=== PATIENT | female | born 1970 | race Caucasian/White ===

== ENCOUNTER 2019-02-08 09:42 | Inpatient (IN) | payer BC ==
[~2019-02-08] VITALS: Ht 167.6 cm; Wt 68.4 kg
[2019-02-08] VITALS (24 sets, daily range): BP systolic 119–149; BP diastolic 68–93; PULSE 74–106; RESP 13–33; Ht 167.6 cm; Wt 68.4 kg
--- NOTE | 2019-02-08 00:58 | PREOPHP ---
DATE OF ADMISSION: 02/08/2019 HISTORY OF PRESENT ILLNESS: The patient was originally seen in the office for evaluation of low back pain with pain going down to the left leg. 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 Conservative management was offered to the patient. She received a lumbar epidural injection. She has also received physical therapy and pain management. Unfortunat jovany, the patient's condition did not improve. She is having worsening back pain, worsening leg pain, more definite to be done. Surgical option was discussed with the patient with lumbar 4-5 bilateral laminotomy with possible microdiskectomy, possible interbody fusion, removal of left lumbar 4 -5 face t cyst, posterior fusion and interspinous Amanda instrumentation. The procedure was explained to the patient in great detail. The patient understand and wants to proceed with the surgical intervention. PAST MEDICAL HISTORY: History of psychiatric disorder. PAST SURGICAL HISTORY: Per chart. SOCIAL HISTORY: Denies use of drugs, alcohol, tobacco. ALLERGIES: PER CHART. MEDICATIONS: Taken at home per chart. FAMILY HISTORY: Unremarkable. REVIEW OF SYSTEMS: Additional 10-point review of system was conducted. Pertinent positives as state d and she has been managing ____ gait instability. PHYSICAL EXAMINATION: GENERAL: Awake, alert, oriented, follows commands. HEENT: Unremarkable. PULMONARY: No dyspnea. No tachypnea. CARDIOVASCULAR: No JVD. EXTREMITIES: No pedal edema. ABDOMEN: Soft. No guarding. NEUROLOGIC: Awake, alert, oriented, follows commands. Has good strength in upper extremities. Lowe r extremity examination has left-sided to positive leg raising. Right side is unremarkable. Flexion , extension of the lumbar spine causes low back discomfort. IMAGING FINDINGS: MRI of the lumbar spine shows lumbar 4 -5 spondylolisthesis with a left 4-5 facet cyst. PLAN: Recommendation is for patient to proceed with the surgical intervention with lumbar 4-5 bilate ral laminectomy with possible microdiskectomy, possible interbody fusion, removal of left lumbar 4-5 facet cyst, posterior fusion and interspinous Amanda instrumentation. The procedure was explained to the patient in great detail. Complications explained including infection, bleeding, permanent nerve damage, stroke, heart attack as well as complications associated with anesthesia. The patient unders tand and wants to proceed with surgery. She will be admitted to the hospital thereafter for further care and management. Dictated By: MARILOU GUSMAN/SIGRID Conf#: [id number] DID#: [id number]
[2019-02-08] MEDS ORDERED: OXCA600T30 PO (10:27)
[2019-02-08] MEDS ORDERED: BACL10TA PO (10:28)
[2019-02-08] MEDS ORDERED: QUET100T PO (10:28)
[2019-02-08] MEDS ORDERED: QUET25TA PO (10:29)
[2019-02-08] MEDS ORDERED: CYCL10TA7 PO (10:29)
[2019-02-08] MEDS ORDERED: RANI150T5 PO (10:29)
[2019-02-08] MEDS ORDERED: GABA-526 PO (10:30)
[2019-02-08] MEDS ORDERED: GELATIN SIZE 100 SPONGE ONE (11:32)
[2019-02-08] MEDS ORDERED: LIDOCAINE 1%/EPI (1:100,000) (MDV) 20 ML ONE (11:32)
[2019-02-08] MEDS ORDERED: THROMBIN (BOVINE) 5,000 UNIT VIAL TP ONE (11:32)
[2019-02-08] MEDS ORDERED: POLYMYXIN/BACITRACIN 1L IRRIG ONE (11:32)
--- NOTE | 2019-02-08 11:50 | PREAC ---
Date/Time of Note Date/Time of Note DATE: 02/08/19 TIME: 11:47 Anesthesia Eval and Record Evaluation Time Pre-Procedure Interview DATE: 02/08/19 TIME: 11:47 Age 48 Sex female NPO: 8 hrs Preoperative diagnosis LUMBAR STENOSIS, L4-L5 SPONDYLOLISTHESIS WITH LEFT FACET CYST Planned procedure L4-L5 BILATERAL LAMINECTOMY, REMOVAL OF FACET CYST Past Medical History Past Medical History: Includes Pulm: Smoking Hx (35 PY), COPD, Asthma Surgery & Anesthesia Issues No known issue Meds Anticoagulation: No Beta Deacon within 24 hr: No Reason Beta Deacon not given: Pt. not on B-Deacon Reported Medications Gabapentin* (Gabapentin*) 600 Mg Tablet, 600 MG PO BID, #60 TAB 02/08/19 Quetiapine Fumarate* (Seroquel*) 25 Mg Tablet, 25 MG PO BID PRN for ANXIETY, #60 TAB 02/08/19 Ranitidine Hcl* (Ranitidine Hcl*) 150 Mg Tablet, 150 MG PO Q12, #60 TAB 02/08/19 Cyclobenzaprine Hcl* (Cyclobenzaprine Hcl*) 10 Mg Tablet, 10 MG PO DAILY PRN for MUSCLE SPASMS, #60 TAB 02/08/19 Baclofen* (Baclofen*) 10 Mg Tablet, 10 MG PO BID, TAB 02/08/19 Quetiapine Fumarate* (Seroquel*) 100 Mg Tablet, 100 MG PO HS, #30 TAB 02/08/19 Oxcarbazepine* (Oxcarbazepine*) 600 Mg Tablet, 1200 MG PO QAM, TAB 02/08/19 Meds reviewed: Yes Allergies Coded Allergies: ibuprofen (Verified Allergy, Unknown, 02/08/19) Allergies Reviewed: Yes Labs/Studies Labs Reviewed: Reviewed by anesthesiologist test: N/A Studies: ECG (NL), CXR (HYPERINFLATION) Pre-procedure Exam Airway: Adequate mouth opening, Adequate thyromental dist Mallampati: Mallampati II Teeth: Normal Lung: Normal Heart: Normal ASA Physical Status ASA physical status: 2 Emergency: None Planned Anesthetic General/MAC: ETT Planned Pain Management Parenteral pain med Pre-operative Attestations Prior to commencing anesthesia and surgery, the patient was re-evaluated, there was verification of: *The patient's identity *The results of appropriate recent lab work and preoperative vital signs *The above evaluation not changing prior to induction *Anesthetic plan, risk benefits, alternative and complications discussed with patient/family; questions answered; patient/family understands, accepts and wishes to proceed. Beck Valentine M.D. Feb 08, 2019 11:50
[2019-02-08] MEDS ORDERED: CEFAZOLIN 1 GM INJ ONE (11:56)
[2019-02-08] MEDS ORDERED: GLYCOPYRROLATE 0.4 MG INJ ONE (11:56)
[2019-02-08] MEDS ORDERED: ROCURONIUM 50 MG INJ ONE (11:56)
[2019-02-08] MEDS ORDERED: NEOSTIGMINE 3 MG/3 ML SYRINGE ONE (11:56)
[2019-02-08] MEDS ORDERED: PROPOFOL 20 ML ONE (11:56)
[2019-02-08] MEDS ORDERED: DEXAMETHASONE 4 MG/ML 5 ML INJ ONE (11:57)
[2019-02-08] MEDS ORDERED: MIDAZOLAM 1 MG/ML 2 ML INJ ONE (11:57)
[2019-02-08] MEDS ORDERED: ONDANSETRON 4 MG INJ ONE (11:57)
[2019-02-08] MEDS ORDERED: ALBUTEROL 0.083% (NEB) 2.5 MG/3 ML AMP HHN PRN (12:00)
[2019-02-08] MEDS ORDERED: OXYCODONE/ACETAMINOPHEN (5/325) TAB PO PRN ×2 (12:00)
[2019-02-08] MEDS ORDERED: hydrALAzine 20 MG INJ IV PRN (12:00)
[2019-02-08] MEDS ORDERED: EPHEDrine SULFATE 50 MG/5 ML SYG IV PRN (12:00)
[2019-02-08] MEDS ORDERED: MEPERIDINE 25 MG INJ IV PRN (12:00)
[2019-02-08] MEDS ORDERED: IPRATROPIUM (NEB) 0.5 MG/2.5 ML AMP HHN PRN (12:00)
[2019-02-08] MEDS ORDERED: TRIMETHOBENZAMIDE 100 MG/ML VIAL IM PRN (12:00)
[2019-02-08] MEDS ORDERED: HYDROmorphONE 1 MG/5 ML IV SYRINGE IV PRN ×3 (12:00)
[2019-02-08] MEDS ORDERED: FENTAnyl 50 MCG/ML VIAL IV PRN ×2 (12:00)
[2019-02-08] MEDS ORDERED: DIPHENHYDRAMINE 50 MG INJ IV PRN (12:00)
[2019-02-08] MEDS ORDERED: ONDANSETRON 4 MG INJ IV PRN ×2 (12:00→14:30)
[2019-02-08] MEDS ORDERED: MIDAZOLAM 1 MG/ML 2 ML INJ IV PRN (12:00)
[2019-02-08] MEDS ORDERED: LABETALOL HCL 20MG INJ IV PRN (12:00)
[2019-02-08] MEDS ORDERED: SUGAMMADEX SODIUM 200 MG/2 ML VIAL IV ONE (13:54)
--- NOTE | 2019-02-08 14:11 | OPR ---
Date/Time of Note Date/Time of Note DATE: 02/08/19 TIME: 14:08 Operative Report Preoperative Diagnosis LUMBAR FOUR FIVE SPONDYLOLISTHESIS WITH LEFT L4-5 FACET CYST Postoperative Diagnosis SAME Operation/Procedure Performed LUMBAR FOUR FIVE BILATERAL LAMINOTOMY WITH REMOVAL OF LEFT FOUR FIVE FACET CYST, POSTERIOR FUSION AND INTERSPINOUS ASPEN DEVICE INSTRUMENTATION Surgeon see signature line Medical Billing And Coding Specialist GIORGI GUEVARA PAC Anesthesia Type: general Estimated Blood Loss: 50 - 100 ml's Transfusion none Specimen NONE Grafts/Implants ASPEN Complications none Procedure Description LUMBAR FOUR FIVE BILATERAL LAMINOTOMY WITH REMOVAL OF LEFT FOUR FIVE FACET CYST, POSTERIOR FUSION AND INTERSPINOUS ASPEN DEVICE INSTRUMENTATION MARILOU WOODWARD MD Feb 08, 2019 14:10
--- NOTE | 2019-02-08 14:20 | PAC ---
Date/Time of Note Date/Time of Note DATE: 02/08/19 TIME: 14:20 Post-Anesthesia Notes Post-Anesthesia Note Last documented vital signs Vital Signs Date Temp Pulse Resp B/P (MAP) Pulse Ox O2 O2 Flow FiO2 Time Delivery Rate 02/08/19 98.1 74 16 119/70 99 Room Air 13:51 (86) Activity: WNL Respiratory function: WNL Cardiovascular function: WNL Mental status: Baseline Pain reasonably controlled: Yes Hydration appropriate: Yes Nausea/Vomiting absent: Yes Beck Valentine M.D. Feb 08, 2019 14:20
[2019-02-08] MEDS: FENTAnyl 50 MCG/ML VIAL IV PRN ×2 (14:28→15:01)
[2019-02-08] MEDS: DEXTROSE 5%-LR 1,000 ML IV SCH (14:30)
[2019-02-08] MEDS: morphine 2 MG INJ IV PRN (14:31)
[2019-02-08] MEDS: HYDROmorphONE 2 MG/ML SYG IV PRN (17:49)
--- NOTE | 2019-02-08 19:59 | HP ---
Date/Time of Note Date/Time of Note DATE: 02/08/19 TIME: 19:42 Assessment/Plan VTE Prophylaxis Risk score (from Nsg)>0 risk: 8 SCD applied (from Nsg): Yes SCD contraindicated: other Pharmacological prophylaxis: other Pharm contraindication: other Lines/Catheters IV Catheter Type (from Nrsg): Peripheral IV Urinary Cath still in place: Yes Reason Cath still needed: urinary retention Assessment/Plan Assessment/Plan # LUMBAR FOUR FIVE SPONDYLOLISTHESIS WITH LEFT L4-5 FACET CYST # INTRACTABLE BACK PAIN 2/2 ABOVE # SP LUMBAR FOUR FIVE BILATERAL LAMINOTOMY WITH REMOVAL OF LEFT FOUR FIVE FACET CYST, POSTERIOR FUSION AND INTERSPINOUS ASPEN DEVICE INSTRUMENTATION - PER neurosx - Admit to MS - pain control with Dilaudid - scd - Protonix; Colace - Asthma -Anxiety - Bipolar - Current Tobaccoism - provide smoking cessation Patient seen i n collaboration with Dr Aleman HPI/ROS Admit Date/Time Admit Date/Time Feb 08, 2019 at 09:42 ROS A 48 years old female patient with history of low back pain with pain going down to the left leg, who was diagnosed with lumbar L4-L5 spondylolisthesis with left L4-L5 facet cyst. Patient is sp Conservative management and she received a lumbar epidural injection. Her physical therapy and pain management was ineffective. Patient c/o worsening back pain, worsening leg pain. Dr Matson has seen patient and surgical options were dw patient. Patient underwent back surgery- lumbar 4-5 bilateral laminotomy with possible microdiskectomy, possible interbody fusion, removal of left lumbar 4 -5 facet cyst, posterior fusion and interspinous Leroy instrumentation. today and has severe post op pain. She is admitted under Dr Aleman PAST MEDICAL HISTORY: History of psychiatric disorder. PAST SURGICAL HISTORY: Per chart. SOCIAL HISTORY: Denies use of drugs, alcohol, tobacco. ALLERGIES: Ibuprofen MEDICATIONS: Taken at home per chart. FAMILY HISTORY: Unremarkable. REVIEW OF SYSTEMS: Additional 10-point review of system was conducted. Eyes: no complaints ENT: no complaints Respiratory: no complaints Cardiovascular: no complaints Gastrointestinal: no complaints Genitourinary: no complaints Musculoskeletal: back pain Skin: no complaints Neurologic: no complaints Endocrine: no complaints Lymphatic: no complaints PMH/Family/Social Past Medical History Chronic back pain Insomnia Bipolar Medications Current Medications Dextrose/Lactated Ringer's 1,000 ml @ 100 mls/hr Q10H IV ; Start 02/08/19 at 14:30 Cefazolin Sodium 50 ml @ 100 mls/hr Q8 IVPB ; Start 02/08/19 at 22:00; Stop 02/10/19 at 22:00 Clonidine (Catapres) 0.1 mg Q4H PRN PO SBP>150; Start 02/08/19 at 14:30 Morphine Sulfate (morphine) 2 mg Q4H PRN IV SEVERE PAIN LEVEL 7-10 Last administered on 02/08/19at 14:31; Admin Dose 2 MG; Start 02/08/19 at 14:30 Acetaminophen/ Hydrocodone Bitart ([place] (5/325)) 1 tab Q4H PRN PO MODERATE PAIN LEVEL 4-6; Start 02/08/19 at 14:30 Ondansetron HCl (Zofran Inj) 4 mg Q6H PRN IV NAUSEA AND/OR VOMITING; Start 02/08/19 at 14:30 Hydromorphone HCl (Dilaudid) 2 mg Q3 PRN IV SEVERE PAIN LEVEL 7-10 Last administered on 02/08/19at 17:49; Admin Dose 2 MG; Start 02/08/19 at 16:30 Acetaminophen/ Hydrocodone Bitart ([place] (7.5-325)) 1 tab Q4H PRN PO MODERATE PAIN LEVEL 4-6; Start 02/08/19 at 16:30 Coded Allergies: ibuprofen (Verified Allergy, Unknown, 02/08/19) Past Surgical History Mastectomy Thyroidectomy Family History Significant Family History: asthma Social History Smoking Status: Current every day smoker Exam/Review of Systems Vital Signs Vitals Vital Signs Date Temp Pulse Resp B/P (MAP) Pulse Ox O2 O2 Flow FiO2 Time Delivery Rate 02/08/19 98.0 79 20 134/74 96 Nasal 2.0 18:15 (94) Cannula Exam Constitutional: alert, well developed Psych: no complaints Eyes: nl lids, nl sclera ENMT: nl external ears & nose Neck: non-tender Respiratory: diminished breath sounds Cardiovascular: nl pulses, other (s1s2) Gastrointestinal: soft, non-tender Musculoskeletal: nl extremities to inspection Extremities: normal pulses Neurological: nl speech, other Skin: other (Lumbar r\dressing noted- DDI) Lymph: nontender Additional Comments MRI of the lumbar spine shows lumbar 4 -5 spondylolisthesis with a left 4-5 facet cyst. SADEORA,TAINA Feb 08, 2019 19:53
[2019-02-08] MEDS: QUETIAPINE 100 MG TAB PO SCH (20:38)
[2019-02-08] MEDS: GABAPENTIN 300 MG CAP PO SCH (20:38)
[2019-02-08] MEDS: BACLOFEN 10 MG TAB PO SCH (20:38)
[2019-02-09] MEDS: CEFAZOLIN 1 GM/50 ML (PMX) 50 ML IVPB SCH ×4 (00:07→21:53)
[2019-02-09] MEDS: DEXTROSE 5%-LR 1,000 ML IV SCH ×3 (01:00→17:45)
[2019-02-09 02:05] VITALS: BP 144/77; PULSE 62; RESP 18
[2019-02-09] MEDS: HYDROmorphONE 2 MG/ML SYG IV PRN ×4 (04:51→21:54)
[2019-02-09] MEDS: PANTOPRAZOLE (EC) 40 MG TAB PO SCH (05:45)
--- NOTE | 2019-02-09 06:37 | CONS ---
Assessment/Plan Assessment/Plan Assessment/Plan (Daily) seen and examined awake alert follows moves all left leg pain better post op pt/ot today Consultation Date/Type/Reason Admit Date/Time Feb 08, 2019 at 09:42 Initial Consult Date Date/Time of Note DATE: 02/09/19 TIME: 06:36 Exam/Review of Systems Exam Vitals Vital Signs Date Temp Pulse Resp B/P (MAP) Pulse Ox O2 O2 Flow FiO2 Time Delivery Rate 02/09/19 98.2 62 18 144/77 95 Nasal 2.0 02:05 (99) Cannula Intake and Output 02/08/19 02/08/19 02/09/19 1515:00 23:00 07:00 IntakeIntake Total 2000 ml 440 ml 290 ml OutputOutput Total 385 ml 500 ml 2875 ml BalanceBalance 1615 ml -60 ml -2585 ml Results Result Diagram: 02/09/19 0435 02/09/19 0435 Results 24hrs Laboratory Tests Test 02/09/19 04:35 White Blood Count 9.4 Red Blood Count 3.85 L Hemoglobin 12.6 Hematocrit 36.6 L Mean Corpuscular Volume 95.1 Mean Corpuscular Hemoglobin 32.7 Mean Corpuscular Hemoglobin Concent 34.4 Red Cell Distribution Width 11.4 L Platelet Count 205 Mean Platelet Volume 10.0 Immature Granulocytes % 0.400 Neutrophils % 66.4 Lymphocytes % 26.5 Monocytes % 6.0 Eosinophils % 0.5 Basophils % 0.2 Nucleated Red Blood Cells % 0.0 Immature Granulocytes # 0.040 H Neutrophils # 6.3 Lymphocytes # 2.5 Monocytes # 0.6 Eosinophils # 0.1 Basophils # 0.0 Nucleated Red Blood Cells # 0.0 Sodium Level 141 Potassium Level 3.9 Chloride Level 108 Carbon Dioxide Level 31 Anion Gap 2 L Blood Urea Nitrogen 8 Creatinine 0.53 Est Glomerular Filtrat Rate mL/min > 60 Glucose Level 120 Calcium Level 9.3 Medications Medication Current Medications Dextrose/Lactated Ringer's 1,000 ml @ 100 mls/hr Q10H IV Last administered on 02/09/19at 01:00; Admin Dose 100 MLS/HR; Start 02/08/19 at 14:30 Cefazolin Sodium 50 ml @ 100 mls/hr Q8 IVPB Last administered on 02/09/19at 05:45; Admin Dose 100 MLS/HR; Start 02/08/19 at 22:00; Stop 02/10/19 at 22:00 Clonidine (Catapres) 0.1 mg Q4H PRN PO SBP>150; Start 02/08/19 at 14:30 Morphine Sulfate (morphine) 2 mg Q4H PRN IV SEVERE PAIN LEVEL 7-10 Last administered on 02/08/19at 14:31; Admin Dose 2 MG; Start 02/08/19 at 14:30 Acetaminophen/ Hydrocodone Bitart ([place] (5/325)) 1 tab Q4H PRN PO MODERATE PAIN LEVEL 4-6; Start 02/08/19 at 14:30 Ondansetron HCl (Zofran Inj) 4 mg Q6H PRN IV NAUSEA AND/OR VOMITING; Start 02/08/19 at 14:30 Hydromorphone HCl (Dilaudid) 2 mg Q3 PRN IV SEVERE PAIN LEVEL 7-10 Last administered on 02/09/19at 04:51; Admin Dose 2 MG; Start 02/08/19 at 16:30 Acetaminophen/ Hydrocodone Bitart ([place] (7.5-325)) 1 tab Q4H PRN PO MODERATE PAIN LEVEL 4-6; Start 02/08/19 at 16:30 Pantoprazole (Protonix Tab) 40 mg DAILY@06 PO Last administered on 02/09/19at 05:45; Admin Dose 40 MG; Start 02/09/19 at 06:00 Docusate Sodium (Colace) 100 mg DAILY PO ; Start 02/09/19 at 09:00 Baclofen (Lioresal) 10 mg BID PO Last administered on 02/08/19at 20:38; Admin D ose 10 MG; Start 02/08/19 at 21:00 Gabapentin (Neurontin) 600 mg BID PO Last administered on 02/08/19at 20:38; Admin Dose 600 MG; Start 02/08/19 at 21:00 Oxcarbazepine (Trileptal) 1,200 mg QAM PO ; Start 02/09/19 at 09:00 Quetiapine Fumarate (Seroquel) 25 mg BID PRN PO ANXIETY; Start 02/08/19 at 20 :30 Quetiapine Fumarate (Seroquel) 100 mg HS PO Last administered on 02/08/19at 20:38; Admin Dose 100 MG; Start 02/08/19 at 21:00 GIORGI GUEVARA PA-C Feb 09, 2019 06:37
[2019-02-09 07:39] VITALS: BP 106/67; PULSE 79; RESP 18
[2019-02-09] MEDS: BACLOFEN 10 MG TAB PO SCH ×2 (08:05→21:53)
[2019-02-09] MEDS: DOCUSATE SODIUM 100 MG CAP PO SCH (08:05)
[2019-02-09] MEDS: RANITIDINE 150 MG TAB PO SCH (08:06)
[2019-02-09] MEDS: OXCARBAZEPINE 300 MG TAB PO SCH (08:06)
[2019-02-09] MEDS: GABAPENTIN 300 MG CAP PO SCH ×2 (08:06→21:53)
[2019-02-09] MEDS: NICOTINE (14 MG/24 HR) PATCH TRANSDERM SCH (10:15)
[2019-02-09] MEDS: HYDROCODONE/APAP (7.5/325) TAB PO PRN (10:16)
[2019-02-09 14:00] VITALS: BP 136/59; PULSE 80; RESP 18
[2019-02-09] MEDS: CALCIUM CARBONATE 500 MG CHEW TAB PO PRN (16:58)
[2019-02-09 19:15] VITALS: BP 123/74; PULSE 68; RESP 20
[2019-02-09] MEDS: QUETIAPINE 100 MG TAB PO SCH (21:53)
[2019-02-10] MEDS: CEFAZOLIN 1 GM/50 ML (PMX) 50 ML IVPB SCH ×3 (05:15→21:35)
[2019-02-10] MEDS: DEXTROSE 5%-LR 1,000 ML IV SCH ×3 (05:15→21:35)
[2019-02-10] MEDS: PANTOPRAZOLE (EC) 40 MG TAB PO SCH (05:16)
[2019-02-10] MEDS: HYDROmorphONE 2 MG/ML SYG IV PRN ×2 (05:18→21:01)
[2019-02-10 07:40] VITALS: BP 121/72; PULSE 77; RESP 19
[2019-02-10] MEDS: BACLOFEN 10 MG TAB PO SCH ×2 (09:01→21:02)
[2019-02-10] MEDS: DOCUSATE SODIUM 100 MG CAP PO SCH (09:01)
[2019-02-10] MEDS: RANITIDINE 150 MG TAB PO SCH (09:01)
[2019-02-10] MEDS: GABAPENTIN 300 MG CAP PO SCH ×2 (09:01→21:02)
[2019-02-10] MEDS: HYDROCODONE/APAP (7.5/325) TAB PO PRN ×4 (09:02→23:27)
[2019-02-10] MEDS: OXCARBAZEPINE 300 MG TAB PO SCH (09:02)
[2019-02-10] MEDS: NICOTINE (14 MG/24 HR) PATCH TRANSDERM SCH (09:02)
--- NOTE | 2019-02-10 14:54 | CONS ---
Assessment/Plan Assessment/Plan Assessment/Plan (Daily) seen and examined awake alert follows moves all drain dced cont pt/ot ok for dc price social issues case management consult rehab consult. Consultation Date/Type/Reason Admit Date/Time Feb 08, 2019 at 09:42 Initial Consult Date Date/Time of Note DATE: 02/10/19 TIME: 14:49 Exam/Review of Systems Exam Vitals Vital Signs Date Temp Pulse Resp B/P (MAP) Pulse Ox O2 O2 Flow FiO2 Time Delivery Rate 02/10/19 98.2 77 19 121/72 98 07:40 (88) 02/09/19 Room Air 07:39 02/09/19 2.0 02:05 Intake and Output 02/09/19 02/09/19 02/10/19 1515:00 23:00 07:00 IntakeIntake Total 400 ml 1790 ml 1470 ml OutputOutput Total 900 ml 5 ml BalanceBalance 400 ml 890 ml 1465 ml Results Result Diagram: 02/09/19 0435 02/09/19 0435 Medications Medication Current Medications Dextrose/Lactated Ringer's 1,000 ml @ 100 mls/hr Q10H IV Last administered on 02/10/19at 05:15; Admin Dose 100 MLS/HR; Start 02/08/19 at 14:30 Cefazolin Sodium 50 ml @ 100 mls/hr Q8 IVPB Last administered on 02/10/19at 05:15; Admin Dose 100 MLS/HR; Start 02/08/19 at 22:00; Stop 02/10/19 at 22:00 Clonidine (Catapres) 0.1 mg Q4H PRN PO SBP>150; Start 02/08/19 at 14:30 Morphine Sulfate (morphine) 2 mg Q4H PRN IV SEVERE PAIN LEVEL 7-10 Last administered on 02/08/19at 14:31; Admin Dose 2 MG; Start 02/08/19 at 14:30 Acetaminophen/ Hydrocodone Bitart ([place] (5/325)) 1 tab Q4H PRN PO MODERATE PAIN LEVEL 4-6; Start 02/08/19 at 14:30 Ondansetron HCl (Zofran Inj) 4 mg Q6H PRN IV NAUSEA AND/OR VOMITING; Start 02/08/19 at 14:30 Hydromorphone HCl (Dilaudid) 2 mg Q3 PRN IV SEVERE PAIN LEVEL 7-10 Last administered on 02/10/19 05:18; Admin Dose 2 MG; Start 02/08/19 at 16:30 Acetaminophen/ Hydrocodone Bitart ([place] (7.5-325)) 1 tab Q4H PRN PO MODERATE PAIN LEVEL 4-6 Last administered on 02/10/19 14:22; Admin Dose 1 TAB; Start 02/08/19 at 16:30 Pantoprazole (Protonix Tab) 40 mg DAILY@06 PO Last administered on 02/10/19 05:16; Admin Dose 40 MG; Start 02/09/19 at 06:00 Docusate Sodium (Colace) 100 mg DAILY PO Last administered on 02/10/19 09:01; Admin Dose 100 MG; Start 02/09/19 at 09:00 Baclofen (Lioresal) 10 mg BID PO Last administered on 02/10/19 09:01; Admin Dose 10 MG; Start 02/08/19 at 21:00 Gabapentin (Neurontin) 600 mg BID PO Last administered on 02/10/19 09:01; Admin Dose 600 MG; Start 02/08/19 at 21:00 Oxcarbazepine (Trileptal) 1,200 mg QAM PO Last administered on 02/10/19 09:02; Admin Dose 1,200 MG; Start 02/09/19 at 09:00 Quetiapine Fumarate (Seroquel) 25 mg BID PRN PO ANXIETY; Start 02/08/19 at 20:30 Quetiapine Fumarate (Seroquel) 100 mg HS PO Last administered on 02/09/19at 21:53; Admin Dose 100 MG; Start 02/08/19 at 21:00 Nicotine (Nicoderm 14 Mg/ 24hr) 1 patch DAILY TRANSDERM Last administered on 02/10/19 09:02; Admin Dose 1 PATCH; Start 02/09/19 at 09:00 Ranitidine HCl (Zantac) 150 mg DAILY PO Last administered on 02/10/19 09:01; Admin Dose 150 MG; Start 02/09/19 at 09:00 Miscellaneous Information Patients own medicat... BID@10,16 XX ; Start 02/09/19 at 16:00 Calcium Carbonate (Tums) 1,000 mg Q6 PRN PO HEARTBURN Last administered on 02/09/19at 16:58; Admin Dose 1,000 MG; Start 02/09/19 at 16:30 GIORGI GUEVARA PA-C Feb 10, 2019 14:54
[2019-02-10 19:45] VITALS: BP 128/79; PULSE 75; RESP 18
[2019-02-10] MEDS: QUETIAPINE 100 MG TAB PO SCH (21:02)
[2019-02-11] MEDS: HYDROmorphONE 2 MG/ML SYG IV PRN ×4 (01:58→20:45)
[2019-02-11 02:00] VITALS: BP 125/85; PULSE 69; RESP 18
[2019-02-11] MEDS: PANTOPRAZOLE (EC) 40 MG TAB PO SCH (04:58)
[2019-02-11] MEDS: HYDROCODONE/APAP (7.5/325) TAB PO PRN ×2 (04:58→14:30)
[2019-02-11 07:24] VITALS: BP 101/66; PULSE 92; RESP 18
[2019-02-11] MEDS: RANITIDINE 150 MG TAB PO SCH (09:21)
[2019-02-11] MEDS: GABAPENTIN 300 MG CAP PO SCH ×2 (09:22→20:45)
[2019-02-11] MEDS: BACLOFEN 10 MG TAB PO SCH ×2 (09:22→20:45)
[2019-02-11] MEDS: DOCUSATE SODIUM 100 MG CAP PO SCH (09:22)
[2019-02-11] MEDS: OXCARBAZEPINE 300 MG TAB PO SCH (09:22)
[2019-02-11] MEDS: NICOTINE (14 MG/24 HR) PATCH TRANSDERM SCH (09:23)
[2019-02-11] MEDS: DEXTROSE 5%-LR 1,000 ML IV SCH (10:04)
[2019-02-11] MEDS: HYDROCODONE/APAP (5/325) TAB PO PRN ×2 (11:26→18:51)
[2019-02-11 13:16] VITALS: BP 111/76; PULSE 108; RESP 18
[2019-02-11] MEDS: QUETIAPINE 25 MG TAB PO PRN (14:33)
--- NOTE | 2019-02-11 15:20 | PN ---
Date/Time of Note Date/Time of Note DATE: 02/11/19 TIME: 15:19 Assessment/Plan VTE Prophylaxis Risk score (from Nsg)>0 risk: 7 SCD applied (from Nsg): Yes Lines/Catheters IV Catheter Type (from Nrsg): Peripheral IV Urinary Cath still in place: Yes Reason Cath still needed: urinary retention Assessment/Plan Assessment/Plan # LUMBAR FOUR FIVE SPONDYLOLISTHESIS WITH LEFT L4-5 FACET CYST # INTRACTABLE BACK PAIN 2/2 ABOVE # SP LUMBAR FOUR FIVE BILATERAL LAMINOTOMY WITH REMOVAL OF LEFT FOUR FIVE FACET CYST, POSTERIOR FUSION AND INTERSPINOUS ASPEN DEVICE INSTRUMENTATION - PER neurosx - pain control with Dilaudid - scd - Protonix; Colace - Asthma -Anxiety - Bipolar - Current Tobaccoism - provide smoking cessation Patient seen in collaboration with Dr Donohue Result Diagram: 02/09/1943402/09/19434 Subjective 24 Hr Interval Summary Musculoskeletal: back pain Exam/Review of Systems Exam Vitals Vital Signs Date Temp Pulse Resp B/P (MAP) Pulse Ox O2 O2 Flow FiO2 Time Delivery Rate 02/11/19 99.2 108 18 111/76 93 13:16 (88) 02/11/19 Room Air 02:00 02/09/19 2.0 02:05 Intake and Output 02/10/19 02/10/19 02/11/19 1515:00 23:00 07:00 IntakeIntake Total 220 ml 1520 ml 1700 ml OutputOutput Total 1100 ml BalanceBalance -880 ml 1520 ml 1700 ml Constitutional: alert Psych: nl mood/affect Eyes: nl lids ENMT: nl external ears & nose Respiratory: clear to auscultation Cardiovascular: nl pulses Gastrointestinal: soft, non-tender Musculoskeletal: joint tenderness, range of motion Extremities: normal pulses Neurological: nl speech Skin: nl turgor Lymph: nontender Medications Medication Current Medications Clonidine (Catapres) 0.1 mg Q4H PRN PO SBP>150; Start 02/08/19 at 14:30 Morphine Sulfate (morphine) 2 mg Q4H PRN IV SEVERE PAIN LEVEL 7-10 Last administered on 02/08/19at 14:31; Admin Dose 2 MG; Start 02/08/19 at 14:30 Acetaminophen/ Hydrocodone Bitart ([place] (5/325)) 1 tab Q4H PRN PO MODERATE PAIN LEVEL 4-6 Last administered on 02/11/19 11:26; Admin Dose 1 TAB; Start 02/08/19 at 14:30 Ondansetron HCl (Zofran Inj) 4 mg Q6H PRN IV NAUSEA AND/OR VOMITING; Start 02/08/19 at 14:30 Hydromorphone HCl (Dilaudid) 2 mg Q3 PRN IV SEVERE PAIN LEVEL 7-10 Last administered on 02/11/19 12:38; Admin Dose 2 MG; Start 02/08/19 at 16:30 Acetaminophen/ Hydrocodone Bitart ([place] (7.5-325)) 1 tab Q4H PRN PO MODERATE PAIN LEVEL 4-6 Last administered on 02/11/19 14:30; Admin Dose 1 TAB; Start 02/08/19 at 16:30 Pantoprazole (Protonix Tab) 40 mg DAILY@06 PO Last administered on 02/11/19 04:58; Admin Dose 40 MG; Start 02/09/19 at 06:00 Docusate Sodium (Colace) 100 mg DAILY PO Last administered on 02/11/19 09:22; Admin Dose 100 MG; Start 02/09/19 at 09:00 Baclofen (Lioresal) 10 mg BID PO Last administered on 02/11/19 09:22; Admin Dose 10 MG; Start 02/08/19 at 21:00 Gabapentin (Neurontin) 600 mg BID PO Last administered on 02/11/19 09:22; Admin Dose 600 MG; Start 02/08/19 at 21:00 Oxcarbazepine (Trileptal) 1,200 mg QAM PO Last administered on 02/11/19 09:22; Admin Dose 1,200 MG; Start 02/09/19 at 09:00 Quetiapine Fumarate (Seroquel) 25 mg BID PRN PO ANXIETY Last administered on 02/11/19 14:33; Admin Dose 25 MG; Start 02/08/19 at 20:30 Quetiapine Fumarate (Seroquel) 100 mg HS PO Last administered on 02/10/19 21:02; Admin Dose 100 MG; Start 02/08/19 at 21:00 Nicotine (Nicoderm 14 Mg/ 24hr) 1 patch DAILY TRANSDERM Last administered on 02/11/19 09:23; Admin Dose 1 PATCH; Start 02/09/19 at 09:00 Ranitidine HCl (Zantac) 150 mg DAILY PO Last administered on 02/11/19at 09:21; Admin Dose 150 MG; Start 02/09/19 at 09:00 Miscellaneous Information Patients own medicat... BID@10,16 XX ; Start 02/09/19 at 16:00 Calcium Carbonate (Tums) 1,000 mg Q6 PRN PO HEARTBURN Last administered on 02/09/19at 16:58; Admin Dose 1,000 MG; Start 02/09/19 at 16:30 TAINA MORLEY Feb 11, 2019 15:20
--- NOTE | 2019-02-11 15:21 | PN ---
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 # INTRACTABLE BACK PAIN 2/2 ABOVE # SP LUMBAR FOUR FIVE BILATERAL LAMINOTOMY WITH REMOVAL OF LEFT FOUR FIVE FACET CYST, POSTERIOR FUSION AND INTERSPINOUS ASPEN DEVICE INSTRUMENTATION - PER neurosx - Admit to MS - pain control with Dilaudid - scd - Protonix; Colace - Asthma -Anxiety - Bipolar - Current Tobaccoism - provide smoking cessation Patient seen i n collaboration with Dr Donohue Result Diagram: 02/09/1943402/09/19434 Exam/Review of Systems Exam Vitals Vital Signs Date Temp Pulse Resp B/P (MAP) Pulse Ox O2 O2 Flow FiO2 Time Delivery Rate 02/11/19 99.2 108 18 111/76 93 13:16 (88) 02/11/19 Room Air 02:00 02/09/19 2.0 02:05 Intake and Output 02/10/19 02/10/19 02/11/19 1515:00 23:00 07:00 IntakeIntake Total 220 ml 1520 ml 1700 ml OutputOutput Total 1100 ml BalanceBalance -880 ml 1520 ml 1700 ml Medications Medication Current Medications Clonidine (Catapres) 0.1 mg Q4H PRN PO SBP>150; Start 02/08/19 at 14:30 Morphine Sulfate (morphine) 2 mg Q4H PRN IV SEVERE PAIN LEVEL 7-10 Last administered on 02/08/19at 14:31; Admin Dose 2 MG; Start 02/08/19 at 14:30 Acetaminophen/ Hydrocodone Bitart ([place] (5/325)) 1 tab Q4H PRN PO MODERATE PAIN LEVEL 4-6 Last administered on 02/11/19at 11:26; Admin Dose 1 TAB; Start 02/08/19 at 14:30 Ondansetron HCl (Zofran Inj) 4 mg Q6H PRN IV NAUSEA AND/OR VOMITING; Start 02/08/19 at 14:30 Hydromorphone HCl (Dilaudid) 2 mg Q3 PRN IV SEVERE PAIN LEVEL 7-10 Last administered on 02/11/19 12:38; Admin Dose 2 MG; Start 02/08/19 at 16:30 Acetaminophen/ Hydrocodone Bitart ([place] (7.5-325)) 1 tab Q4H PRN PO MODERATE PAIN LEVEL 4-6 Last administered on 02/11/19 14:30; Admin Dose 1 TAB; Start 02/08/19 at 16:30 Pantoprazole (Protonix Tab) 40 mg DAILY@06 PO Last administered on 02/11/19 04:58; Admin Dose 40 MG; Start 02/09/19 at 06:00 Docusate Sodium (Colace) 100 mg DAILY PO Last administered on 02/11/19 09:22; Admin Dose 100 MG; Start 02/09/19 at 09:00 Baclofen (Lioresal) 10 mg BID PO Last administered on 02/11/19 09:22; Admin Dose 10 MG; Start 02/08/19 at 21:00 Gabapentin (Neurontin) 600 mg BID PO Last administered on 02/11/19 09:22; Admin Dose 600 MG; Start 02/08/19 at 21:00 Oxcarbazepine (Trileptal) 1,200 mg QAM PO Last administered on 02/11/19 09:22; Admin Dose 1,200 MG; Start 02/09/19 at 09:00 Quetiapine Fumarate (Seroquel) 25 mg BID PRN PO ANXIETY Last administered on 02/11/19 14:33; Admin Dose 25 MG; Start 02/08/19 at 20:30 Quetiapine Fumarate (Seroquel) 100 mg HS PO Last administered on 02/10/19 21:02; Admin Dose 100 MG; Start 02/08/19 at 21:00 Nicotine (Nicoderm 14 Mg/ 24hr) 1 patch DAILY TRANSDERM Last administered on 02/11/19 09:23; Admin Dose 1 PATCH; Start 02/09/19 at 09:00 Ranitidine HCl (Zantac) 150 mg DAILY PO Last administered on 02/11/19 09:21; Admin Dose 150 MG; Start 02/09/19 at 09:00 Miscellaneous Information Patients own medicat... BID@10,16 XX ; Start 02/09/19 at 16:00 Calcium Carbonate (Tums) 1,000 mg Q6 PRN PO HEARTBURN Last administered on 02/09/19at 16:58; Admin Dose 1,000 MG; Start 02/09/19 at 16:30 TAINA MORLEY Feb 11, 2019 15:21
[2019-02-11 19:25] VITALS: BP 121/58; PULSE 106; RESP 20
[2019-02-11] MEDS: QUETIAPINE 100 MG TAB PO SCH (20:45)
[2019-02-12] MEDS: CALCIUM CARBONATE 500 MG CHEW TAB PO PRN ×2 (00:05→18:38)
[2019-02-12] MEDS: HYDROmorphONE 2 MG/ML SYG IV PRN ×4 (01:29→20:07)
[2019-02-12 02:00] VITALS: BP 92/56; PULSE 96; RESP 20
[2019-02-12] MEDS: PANTOPRAZOLE (EC) 40 MG TAB PO SCH (05:46)
[2019-02-12] MEDS: HYDROCODONE/APAP (7.5/325) TAB PO PRN ×5 (05:47→22:37)
[2019-02-12 07:25] VITALS: BP 111/76; PULSE 99; RESP 18
[2019-02-12] MEDS: RANITIDINE 150 MG TAB PO SCH (08:39)
[2019-02-12] MEDS: BACLOFEN 10 MG TAB PO SCH ×2 (08:40→20:07)
[2019-02-12] MEDS: GABAPENTIN 300 MG CAP PO SCH ×2 (08:40→20:07)
[2019-02-12] MEDS: OXCARBAZEPINE 300 MG TAB PO SCH (08:42)
[2019-02-12] MEDS: NICOTINE (14 MG/24 HR) PATCH TRANSDERM SCH (09:00)
[2019-02-12] MEDS: DOCUSATE SODIUM 100 MG CAP PO SCH (09:01)
[2019-02-12 15:28] VITALS: BP 124/83; PULSE 96; RESP 17
[2019-02-12] MEDS: QUETIAPINE 25 MG TAB PO PRN (17:23)
[2019-02-12] MEDS: NICOTINE (21 MG/24 HR) PATCH TRANSDERM SCH (17:23)
[2019-02-12] MEDS: QUETIAPINE 100 MG TAB PO SCH (20:07)
[2019-02-12 20:39] VITALS: BP 118/65; PULSE 101; RESP 18
[2019-02-13] MEDS: HYDROmorphONE 2 MG/ML SYG IV PRN ×3 (00:10→11:28)
[2019-02-13 01:37] VITALS: BP 105/55; PULSE 90; RESP 18
[2019-02-13] MEDS: HYDROCODONE/APAP (7.5/325) TAB PO PRN ×3 (04:31→13:10)
[2019-02-13] MEDS: PANTOPRAZOLE (EC) 40 MG TAB PO SCH (05:57)
[2019-02-13 07:37] VITALS: BP 116/61; PULSE 86; RESP 18
[2019-02-13] MEDS: CALCIUM CARBONATE 500 MG CHEW TAB PO PRN (07:52)
[2019-02-13] MEDS: OXCARBAZEPINE 300 MG TAB PO SCH (08:48)
[2019-02-13] MEDS: RANITIDINE 150 MG TAB PO SCH (08:48)
[2019-02-13] MEDS: BACLOFEN 10 MG TAB PO SCH (08:49)
[2019-02-13] MEDS: DOCUSATE SODIUM 100 MG CAP PO SCH (08:49)
[2019-02-13] MEDS: NICOTINE (21 MG/24 HR) PATCH TRANSDERM SCH (08:50)
[2019-02-13] MEDS ORDERED: GABAPENTIN 300 MG CAP PO SCH (09:00)
[2019-02-13] MEDS: GABAPENTIN 300 MG CAP PO SCH ×2 (09:02→21:52)
[2019-02-13 14:09] VITALS: BP 111/62; RESP 19
[2019-02-13] MEDS: HYDROCODONE/APAP (10/325) TAB PO PRN ×2 (16:40→21:53)
[2019-02-13] MEDS ORDERED: BISACODYL (EC) 5 MG TAB PO PRN (18:15)
[2019-02-13 20:11] VITALS: BP 129/85; PULSE 90; RESP 18
[2019-02-13] MEDS: QUETIAPINE 100 MG TAB PO SCH (21:52)
[2019-02-14 01:57] VITALS: BP 107/70; PULSE 86; RESP 18
--- NOTE | 2019-02-14 03:31 | PN ---
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 # INTRACTABLE BACK PAIN 2/2 ABOVE # SP LUMBAR FOUR FIVE BILATERAL LAMINOTOMY WITH REMOVAL OF LEFT FOUR FIVE FACET CYST, POSTERIOR FUSION AND INTERSPINOUS ASPEN DEVICE INSTRUMENTATION - PER neurosx - pain control with Dilaudid - scd - Protonix; Colace - Asthma -Anxiety - Bipolar - Current Tobaccoism - provide smoking cessation Patient seen in collaboration with Dr Aleman Subjective 24 Hr Interval Summary Free Text/Dictation 02/13/2019 Entry Exam/Review of Systems Exam Vitals Vital Signs Date Temp Pulse Resp B/P (MAP) Pulse Ox O2 O2 Flow FiO2 Time Delivery Rate 02/14/19 98.1 86 18 107/70 94 01:57 (82) 02/13/19 Room Air 01:37 Medications Medication Current Medications Clonidine (Catapres) 0.1 mg Q4H PRN PO SBP>150; Start 02/08/19 at 14:30 Morphine Sulfate (morphine) 2 mg Q4H PRN IV SEVERE PAIN LEVEL 7-10 Last administered on 02/08/19at 14:31; Admin Dose 2 MG; Start 02/08/19 at 14:30 Ondansetron HCl (Zofran Inj) 4 mg Q6H PRN IV NAUSEA AND/OR VOMITING; Start 02/08/19 at 14:30 Acetaminophen/ Hydrocodone Bitart ([place] (7.5-325)) 1 tab Q4H PRN PO MODERATE PAIN LEVEL 4-6 Last administered on 02/13/19at 13:10; Admin Dose 1 TAB; Start 02/08/19 at 16:30 Pantoprazole (Protonix Tab) 40 mg DAILY@06 PO Last administered on 02/13/19at 05:57; Admin Dose 40 MG; Start 02/09/19 at 06:00 Docusate Sodium (Colace) 100 mg DAILY PO Last administered on 02/13/19at 08:49; Admin Dose 100 MG; Start 02/09/19 at 09:00 Oxcarbazepine (Trileptal) 1,200 mg QAM PO Last administered on 02/13/19 08:48; Admin Dose 1,200 MG; Start 02/09/19 at 09:00 Quetiapine Fumarate (Seroquel) 25 mg BID PRN PO ANXIETY Last administered on 02/12/19 17:23; Admin Dose 25 MG; Start 02/08/19 at 20:30 Quetiapine Fumarate (Seroquel) 100 mg HS PO Last administered on 02/13/19 21:52; Admin Dose 100 MG; Start 02/08/19 at 21:00 Ranitidine HCl (Zantac) 150 mg DAILY PO Last administered on 02/13/19 08:48; Admin Dose 150 MG; Start 02/09/19 at 09:00 Miscellaneous Information Patients own medicat... BID@10,16 XX ; Start 02/09/19 at 16:00 Calcium Carbonate (Tums) 1,000 mg Q6 PRN PO HEARTBURN Last administered on 02/13/19 07:52; Admin Dose 1,000 MG; Start 02/09/19 at 16:30 Nicotine (Nicoderm 21 Mg/ 24hr) 1 patch DAILY TRANSDERM Last administered on 02/13/19 08:50; Admin Dose 1 PATCH; Start 02/12/19 at 16:00 Gabapentin (Neurontin) 600 mg BID PO Last administered on 02/13/19 21:52; Admin Dose 600 MG; Start 02/13/19 at 09:00 Acetaminophen/ Hydrocodone Bitart ([place] (10/325)) 1 tab Q4H PRN PO SEVERE PAIN LEVEL 7-10 Last administered on 02/13/19 21:53; Admin Dose 1 TAB; Start 02/13/19 at 16:10 Cyclobenzaprine HCl (Flexeril) 10 mg DAILY PRN PO MUSCLE SPASMS; Start 02/13/19 at 18:15 Bisacodyl (Dulcolax) 10 mg DAILY PRN PO CONSTIPATION; Start 02/13/19 at 18:15 TAINA MORLEY Feb 14, 2019 03:31
--- NOTE | 2019-02-14 03:31 | PN ---
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 # INTRACTABLE BACK PAIN 2/2 ABOVE # SP LUMBAR FOUR FIVE BILATERAL LAMINOTOMY WITH REMOVAL OF LEFT FOUR FIVE FACET CYST, POSTERIOR FUSION AND INTERSPINOUS ASPEN DEVICE INSTRUMENTATION - PER neurosx - pain control with Dilaudid - scd - Protonix; Colace - Asthma -Anxiety - Bipolar - Current Tobaccoism - provide smoking cessation Patient seen in collaboration with Dr Alemna Subjective 24 Hr Interval Summary Free Text/Dictation 02/12/2019 Entry Exam/Review of Systems Exam Vitals Vital Signs Date Temp Pulse Resp B/P (MAP) Pulse Ox O2 O2 Flow FiO2 Time Delivery Rate 02/14/19 98.1 86 18 107/70 94 01:57 (82) 02/13/19 Room Air 01:37 Medications Medication Current Medications Clonidine (Catapres) 0.1 mg Q4H PRN PO SBP>150; Start 02/08/19 at 14:30 Morphine Sulfate (morphine) 2 mg Q4H PRN IV SEVERE PAIN LEVEL 7-10 Last administered on 02/08/19at 14:31; Admin Dose 2 MG; Start 02/08/19 at 14:30 Ondansetron HCl (Zofran Inj) 4 mg Q6H PRN IV NAUSEA AND/OR VOMITING; Start 02/08/19 at 14:30 Acetaminophen/ Hydrocodone Bitart ([place] (7.5-325)) 1 tab Q4H PRN PO MODERATE PAIN LEVEL 4-6 Last administered on 02/13/19at 13:10; Admin Dose 1 TAB; Start 02/08/19 at 16:30 Pantoprazole (Protonix Tab) 40 mg DAILY@06 PO Last administered on 02/13/19at 05:57; Admin Dose 40 MG; Start 02/09/19 at 06:00 Docusate Sodium (Colace) 100 mg DAILY PO Last administered on 02/13/19at 08:49; Admin Dose 100 MG; Start 02/09/19 at 09:00 Oxcarbazepine (Trileptal) 1,200 mg QAM PO Last administered on 02/13/19 08:48; Admin Dose 1,200 MG; Start 02/09/19 at 09:00 Quetiapine Fumarate (Seroquel) 25 mg BID PRN PO ANXIETY Last administered on 02/12/19 17:23; Admin Dose 25 MG; Start 02/08/19 at 20:30 Quetiapine Fumarate (Seroquel) 100 mg HS PO Last administered on 02/13/19 21:52; Admin Dose 100 MG; Start 02/08/19 at 21:00 Ranitidine HCl (Zantac) 150 mg DAILY PO Last administered on 02/13/19 08:48; Admin Dose 150 MG; Start 02/09/19 at 09:00 Miscellaneous Information Patients own medicat... BID@10,16 XX ; Start 02/09/19 at 16:00 Calcium Carbonate (Tums) 1,000 mg Q6 PRN PO HEARTBURN Last administered on 02/13/19 07:52; Admin Dose 1,000 MG; Start 02/09/19 at 16:30 Nicotine (Nicoderm 21 Mg/ 24hr) 1 patch DAILY TRANSDERM Last administered on 02/13/19 08:50; Admin Dose 1 PATCH; Start 02/12/19 at 16:00 Gabapentin (Neurontin) 600 mg BID PO Last administered on 02/13/19 21:52; Admin Dose 600 MG; Start 02/13/19 at 09:00 Acetaminophen/ Hydrocodone Bitart ([place] (10/325)) 1 tab Q4H PRN PO SEVERE PAIN LEVEL 7-10 Last administered on 02/13/19 21:53; Admin Dose 1 TAB; Start 02/13/19 at 16:10 Cyclobenzaprine HCl (Flexeril) 10 mg DAILY PRN PO MUSCLE SPASMS; Start 02/13/19 at 18:15 Bisacodyl (Dulcolax) 10 mg DAILY PRN PO CONSTIPATION; Start 02/13/19 at 18:15 TAINA MORLEY Feb 14, 2019 03:31
[2019-02-14] MEDS: HYDROCODONE/APAP (10/325) TAB PO PRN ×5 (04:56→21:30)
[2019-02-14 07:18] VITALS: BP 114/71; PULSE 81; RESP 18
[2019-02-14] MEDS: RANITIDINE 150 MG TAB PO SCH (08:06)
[2019-02-14] MEDS: DOCUSATE SODIUM 100 MG CAP PO SCH (08:06)
[2019-02-14] MEDS: OXCARBAZEPINE 300 MG TAB PO SCH (08:07)
[2019-02-14] MEDS: GABAPENTIN 300 MG CAP PO SCH ×2 (08:07→20:52)
[2019-02-14] MEDS: NICOTINE (21 MG/24 HR) PATCH TRANSDERM SCH (08:07)
[2019-02-14] MEDS: HYDROCORTISONE 1% 28 GM CR TOP SCH ×2 (11:10→20:52)
[2019-02-14 15:10] VITALS: BP 111/64; PULSE 94; RESP 18
[2019-02-14] MEDS ORDERED: NICOTINE (21 MG/24 HR) PATCH TRANSDERM SCH (19:00)
[2019-02-14 20:08] VITALS: BP 117/58; PULSE 95; RESP 18
[2019-02-14] MEDS: QUETIAPINE 100 MG TAB PO SCH (21:30)
[2019-02-15 02:03] VITALS: BP 124/65; PULSE 76; RESP 18
[2019-02-15] MEDS: HYDROCODONE/APAP (10/325) TAB PO PRN ×3 (06:14→18:20)
[2019-02-15 08:00] VITALS: BP 112/69; PULSE 91; RESP 18
[2019-02-15] MEDS: RANITIDINE 150 MG TAB PO SCH (10:11)
[2019-02-15] MEDS: DOCUSATE SODIUM 100 MG CAP PO SCH (10:11)
[2019-02-15] MEDS: GABAPENTIN 300 MG CAP PO SCH ×2 (10:11→20:23)
[2019-02-15] MEDS: NICOTINE (21 MG/24 HR) PATCH TRANSDERM SCH (10:12)
[2019-02-15] MEDS: OXCARBAZEPINE 300 MG TAB PO SCH (10:12)
[2019-02-15] MEDS: morphine 2 MG INJ IV PRN ×3 (10:18→22:41)
[2019-02-15] MEDS: HYDROCORTISONE 1% 28 GM CR TOP SCH ×2 (13:31→20:24)
[2019-02-15 14:57] VITALS: BP 102/59; PULSE 96; RESP 18
[2019-02-15 19:10] VITALS: BP 114/63; PULSE 92; RESP 20
[2019-02-15] MEDS: CYCLOBENZAPRINE 10 MG TAB PO PRN (20:23)
[2019-02-15] MEDS: QUETIAPINE 100 MG TAB PO SCH (20:23)
[2019-02-16 02:10] VITALS: BP 105/58; PULSE 81; RESP 20
[2019-02-16] MEDS: HYDROCODONE/APAP (7.5/325) TAB PO PRN (02:23)
[2019-02-16] MEDS: HYDROCODONE/APAP (10/325) TAB PO PRN ×3 (06:23→14:37)
[2019-02-16 08:24] VITALS: BP 105/57; PULSE 88; RESP 18
[2019-02-16] MEDS: OXCARBAZEPINE 300 MG TAB PO SCH (08:57)
[2019-02-16] MEDS: GABAPENTIN 300 MG CAP PO SCH (08:58)
[2019-02-16] MEDS: RANITIDINE 150 MG TAB PO SCH (08:59)
[2019-02-16] MEDS: DOCUSATE SODIUM 100 MG CAP PO SCH (08:59)
[2019-02-16] MEDS: NICOTINE (21 MG/24 HR) PATCH TRANSDERM SCH (09:00)
[2019-02-16] MEDS: HYDROCORTISONE 1% 28 GM CR TOP SCH (09:02)
[2019-02-16] MEDS: CYCLOBENZAPRINE 10 MG TAB PO PRN (09:02)
--- NOTE | 2019-02-16 11:42 | PN ---
Date/Time of Note Date/Time of Note DATE: 02/16/19 TIME: 11:42 Assessment/Plan VTE Prophylaxis Risk score (from Nsg)>0 risk: 3 SCD applied (from Nsg): Yes Lines/Catheters IV Catheter Type (from Nrsg): Saline Lock Urinary Cath still in place: No Assessment/Plan Result Diagram: 02/15/19 0428 02/15/19 0428 Subjective 24 Hr Interval Summary Free Text/Dictation 02/15/2019- Entry Exam/Review of Systems Exam Vitals Vital Signs Date Temp Pulse Resp B/P (MAP) Pulse Ox O2 O2 Flow FiO2 Time Delivery Rate 02/16/19 98.2 88 18 105/57 96 Room Air 08:24 (73) Intake and Output 02/15/19 02/15/19 02/16/19 1515:00 23:00 07:00 IntakeIntake Total 400 ml 320 ml 650 ml BalanceBalance 400 ml 320 ml 650 ml Medications Medication Current Medications Clonidine (Catapres) 0.1 mg Q4H PRN PO SBP>150; Start 02/08/19 at 14:30 Morphine Sulfate (morphine) 2 mg Q4H PRN IV SEVERE PAIN LEVEL 7-10 Last administered on 02/15/19at 22:41; Admin Dose 2 MG; Start 02/08/19 at 14:30 Ondansetron HCl (Zofran Inj) 4 mg Q6H PRN IV NAUSEA AND/OR VOMITING; Start 02/08/19 at 14:30 Acetaminophen/ Hydrocodone Bitart ([place] (7.5-325)) 1 tab Q4H PRN PO MODERATE PAIN LEVEL 4-6 Last administered on 02/16/19at 02:23; Admin Dose 1 TAB; Start 02/08/19 at 16:30 Docusate Sodium (Colace) 100 mg DAILY PO Last administered on 02/16/19 08:59; Admin Dose 100 MG; Start 02/09/19 at 09:00 Oxcarbazepine (Trileptal) 1,200 mg QAM PO Last administered on 02/16/19at 08:57; Admin Dose 1,200 MG; Start 02/09/19 at 09:00 Quetiapine Fumarate (Seroquel) 25 mg BID PRN PO ANXIETY Last administered on 02/12/19at 17:23; Admin Dose 25 MG; Start 02/08/19 at 20:30 Quetiapine Fumarate (Seroquel) 100 mg HS PO Last administered on 02/15/19 20:23; Admin Dose 100 MG; Start 02/08/19 at 21:00 Ranitidine HCl (Zantac) 150 mg DAILY PO Last administered on 02/16/19 08:59; Admin Dose 150 MG; Start 02/09/19 at 09:00 Miscellaneous Information Patients own medicat... BID@10,16 XX ; Start 02/09/19 at 16:00 Calcium Carbonate (Tums) 1,000 mg Q6 PRN PO HEARTBURN Last administered on 02/13/19 07:52; Admin Dose 1,000 MG; Start 02/09/19 at 16:30 Nicotine (Nicoderm 21 Mg/ 24hr) 1 patch DAILY TRANSDERM Last administered on 02/16/19 09:00; Admin Dose 1 PATCH; Start 02/12/19 at 16:00 Gabapentin (Neurontin) 600 mg BID PO Last administered on 02/16/19 08:58; Admin Dose 600 MG; Start 02/13/19 at 09:00 Acetaminophen/ Hydrocodone Bitart ([place] (10/325)) 1 tab Q4H PRN PO SEVERE PAIN LEVEL 7-10 Last administered on 02/16/19 10:16; Admin Dose 1 TAB; Start 02/13/19 at 16:10 Cyclobenzaprine HCl (Flexeril) 10 mg DAILY PRN PO MUSCLE SPASMS Last administered on 02/16/19 09:02; Admin Dose 10 MG; Start 02/13/19 at 18:15 Bisacodyl (Dulcolax) 10 mg DAILY PRN PO CONSTIPATION Last administered on 02/14/19 15:16; Admin Dose 10 MG; Start 02/13/19 at 18:15 Hydrocortisone (Hydrocortisone 1% Cr) 1 applic BID TOP Last administered on 02/16/19 09:02; Admin Dose 1 APPLIC; Start 02/14/19 at 09:00 TAINA MORLEY February 16, 2019 11:42
--- NOTE | 2019-02-16 11:50 | PDOCDIS ---
Discharge Instructions CONDITION [id number] Patient Condition: Qiysh9v Good HOME CARE INSTRUCTIONS: [id number] Diet Instructions: Dbenz9d ACTIVITY: Yqtzs5Gs Activity Restrictions: Erzkn9h Slowly Increase Activity Rest between Activity Avoid heavy lifting No Sexual Activity Do not Drive Do not operate Machinery Do not operate Power Tool Avoid Heavy Housework [id number] Bathing Restrictions: [id number] Sponge Bath FOLLOW UP/APPOINTMENTS Follow-up Plan fu with PMD x 1 week fU with neurosurgeon as recommenced Call 911 or got to the nearest hospital if symptoms get worse Patient verbalized understanding discharge instructions staff TAINA MORLEY February 16, 2019 11:50
--- NOTE | 2019-02-16 11:50 | DS ---
Date/Time of Note Date/Time of Note DATE: 02/16/19 TIME: 11:50 Discharge Summary Admission/Discharge Info Admit Date/Time Feb 08, 2019 at 09:42 Discharge Date/Time Home Meds Reported Medications Gabapentin* (Gabapentin*) 600 Mg Tablet, 600 MG PO BID, #60 TAB 02/08/19 Quetiapine Fumarate* (Seroquel*) 25 Mg Tablet, 25 MG PO BID PRN for ANXIETY, #60 TAB 02/08/19 Ranitidine Hcl* (Ranitidine Hcl*) 150 Mg Tablet, 150 MG PO Q12, #60 TAB 02/08/19 Cyclobenzaprine Hcl* (Cyclobenzaprine Hcl*) 10 Mg Tablet, 10 MG PO DAILY PRN for MUSCLE SPASMS, #60 TAB 02/08/19 Baclofen* (Baclofen*) 10 Mg Tablet, 10 MG PO BID, TAB 02/08/19 Quetiapine Fumarate* (Seroquel*) 100 Mg Tablet, 100 MG PO HS, #30 TAB 02/08/19 Oxcarbazepine* (Oxcarbazepine*) 600 Mg Tablet, 1200 MG PO QAM, TAB 02/08/19 Follow-up Plan fu with PMD x 1 week fU with neurosurgeon as recommenced Call 911 or got to the nearest hospital if symptoms get worse Patient verbalized understanding discharge instructions dw staff Primary Care Provider Not On Staff Doctor TAINA MORLEY February 16, 2019 11:50
[2019-02-16] MEDS ORDERED: DOCU-144 PO (12:15)
[2019-02-16] MEDS ORDERED: GABA300C16 PO (12:15)
[2019-02-16] MEDS ORDERED: ONDA4VIA6 IV (12:15)
[2019-02-16] MEDS ORDERED: RANI150T5 PO (12:15)
[2019-02-16] MEDS ORDERED: CLON0.1T14 PO (12:15)
[2019-02-16] MEDS ORDERED: CYCL10TA7 PO (12:15)
[2019-02-16] MEDS ORDERED: NICO-546 TRANSDERM (12:15)
[2019-02-16] MEDS ORDERED: BISA5TAB6 PO (12:15)
[2019-02-16] MEDS ORDERED: CALC200T26 PO (12:15)
--- NOTE | 2019-02-16 12:19 | DS ---
Date/Time of Note Date/Time of Note DATE: 02/16/19 TIME: 12:19 Discharge Summary Admission/Discharge Info Admit Date/Time Feb 08, 2019 at 09:42 Discharge Date/Time Home Meds Active Scripts Ranitidine Hcl* (Ranitidine Hcl*) 150 Mg Tablet, 150 MG PO DAILY for 30 Days, TAB Prov:TAINA MORLEY 02/16/19 Ondansetron Hcl* (Ondansetron Hcl* Inj) 4 Mg/2 Ml Vial, 4 MG IV Q6H PRN for NAUSEA AND/OR VOMITING for 30 Days, VIAL Prov:TAINA MORLEY 02/16/19 Docusate Sodium* (Colace*) 100 Mg Capsule, 100 MG PO DAILY for 30 Days, CAP Prov:TAINA MORLEY 02/16/19 Calcium Carbonate (CALCIUM CARBONATE) 200 Mg Tab.chew, 1000 MG PO Q6 PRN for HEARTBURN for 30 Days, TAB.CHEW Prov:TAINA MORLEY 02/16/19 Bisacodyl* (Bisacodyl*) 5 Mg Tablet.dr, 10 MG PO DAILY PRN for CONSTIPATION for 30 Days Prov:TAINA MORLEY 02/16/19 Gabapentin* (Gabapentin*) 300 Mg Capsule, 600 MG PO BID for 30 Days, CAP Prov:TAINA MORLEY 02/16/19 Nicotine* (Nicotine* Patch) 21 mg/day Patch, 1 PATCH TRANSDERM DAILY for 30 Days Prov:TAINA MORLEY 02/16/19 Clonidine Hcl* (Catapres*) 0.1 Mg Tablet, 0.1 MG PO Q4H PRN for SBP>150 for 30 Days, TAB Prov:TAINA MORLEY 02/16/19 Cyclobenzaprine Hcl* (Cyclobenzaprine Hcl*) 10 Mg Tablet, 10 MG PO DAILY PRN for MUSCLE SPASMS for 30 Days, TAB Prov:TAINA MORLEY 02/16/19 Reported Medications Gabapentin* (Gabapentin*) 600 Mg Tablet, 600 MG PO BID, #60 TAB 02/08/19 Quetiapine Fumarate* (Seroquel*) 25 Mg Tablet, 25 MG PO BID PRN for ANXIETY, #60 TAB 02/08/19 Cyclobenzaprine Hcl* (Cyclobenzaprine Hcl*) 10 Mg Tablet, 10 MG PO DAILY PRN for MUSCLE SPASMS, #60 TAB 02/08/19 Baclofen* (Baclofen*) 10 Mg Tablet, 10 MG PO BID, TAB 02/08/19 Quetiapine Fumarate* (Seroquel*) 100 Mg Tablet, 100 MG PO HS, #30 TAB 02/08/19 Oxcarbazepine* (Oxcarbazepine*) 600 Mg Tablet, 1200 MG PO QAM, TAB 02/08/19 Discontinued Reported Medications Ranitidine Hcl* (Ranitidine Hcl*) 150 Mg Tablet, 150 MG PO Q12, #60 TAB 02/08/19 Follow-up Plan fu with PMD x 1 week fU with neurosurgeon as recommenced Call 911 or got to the nearest hospital if symptoms get worse Patient verbalized understanding discharge instructions dw staff Primary Care Provider Not On Staff Doctor TAINA MORLEY February 16, 2019 12:19
--- NOTE | 2019-02-16 13:11 | CONS ---
Assessment/Plan Assessment/Plan Assessment/Plan (Daily) seen and examined awake alert follows moves all sens intact wound looks dry, healig properly outpt fu instructions given. Consultation Date/Type/Reason Admit Date/Time Feb 08, 2019 at 09:42 Initial Consult Date Date/Time of Note DATE: 02/16/19 TIME: 13:10 Exam/Review of Systems Exam Vitals Vital Signs Date Temp Pulse Resp B/P (MAP) Pulse Ox O2 O2 Flow FiO2 Time Delivery Rate 02/16/19 98.2 88 18 105/57 96 Room Air 08:24 (73) Intake and Output 02/15/19 02/15/19 02/16/19 1414:59 22:59 06:59 IntakeIntake Total 400 ml 320 ml 650 ml BalanceBalance 400 ml 320 ml 650 ml Results Result Diagram: 02/15/19 0428 02/15/19 0428 Medications Medication Current Medications Clonidine (Catapres) 0.1 mg Q4H PRN PO SBP>150; Start 02/08/19 at 14:30 Morphine Sulfate (morphine) 2 mg Q4H PRN IV SEVERE PAIN LEVEL 7-10 Last administered on 02/15/19at 22:41; Admin Dose 2 MG; Start 02/08/19 at 14:30 Ondansetron HCl (Zofran Inj) 4 mg Q6H PRN IV NAUSEA AND/OR VOMITING; Start 02/08/19 at 14:30 Acetaminophen/ Hydrocodone Bitart ([place] (7.5-325)) 1 tab Q4H PRN PO MODERATE P AIN LEVEL 4-6 Last administered on 02/16/19at 02:23; Admin Dose 1 TAB; Start 02/08/19 at 16:30 Docusate Sodium (Colace) 100 mg DAILY PO Last administered on 02/16/19at 08:59; Admin Dose 100 MG; Start 02/09/19 at 09:00 Oxcarbazepine (Trileptal) 1,200 mg QAM PO Last administered on 02/16/19at 08:57; Admin Dose 1,200 MG; Start 02/09/19 at 09:00 Quetiapine Fumarate (Seroquel) 25 mg BID PRN PO ANXIETY Last administered on 02/12/19at 17:23; Admin Dose 25 MG; Start 02/08/19 at 20:30 Quetiapine Fumarate (Seroquel) 100 mg HS PO Last administered on 02/15/19 20:23; Admin Dose 100 MG; Start 02/08/19 at 21:00 Ranitidine HCl (Zantac) 150 mg DAILY PO Last administered on 02/16/19 08:59; Admin Dose 150 MG; Start 02/09/19 at 09:00 Miscellaneous Information Patients own medicat... BID@10,16 XX ; Start 02/09/19 at 16:00 Calcium Carbonate (Tums) 1,000 mg Q6 PRN PO HEARTBURN Last administered on 02/13/19 07:52; Admin Dose 1,000 MG; Start 02/09/19 at 16:30 Nicotine (Nicoderm 21 Mg/ 24hr) 1 patch DAILY TRANSDERM Last administered on 02/16/19 09:00; Admin Dose 1 PATCH; Start 02/12/19 at 16:00 Gabapentin (Neurontin) 600 mg BID PO Last administered on 02/16/19 08:58; Admin Dose 600 MG; Start 02/13/19 at 09:00 Acetaminophen/ Hydrocodone Bitart ([place] (10/325)) 1 tab Q4H PRN PO SEVERE PAIN LEVEL 7-10 Last administered on 02/16/19 10:16; Admin Dose 1 TAB; Start 02/13/19 at 16:10 Cyclobenzaprine HCl (Flexeril) 10 mg DAILY PRN PO MUSCLE SPASMS Last administered on 02/16/19 09:02; Admin Dose 10 MG; Start 02/13/19 at 18:15 Bisacodyl (Dulcolax) 10 mg DAILY PRN PO CONSTIPATION Last administered on 02/14 15:16; Admin Dose 10 MG; Start 02/13/19 at 18:15 Hydrocortisone (Hydrocortisone 1% Cr) 1 applic BID TOP Last administered on 02/16/19 09:02; Admin Dose 1 APPLIC; Start 02/14/19 at 09:00 GIORGI GUEVARA PA-C February 16, 2019 13:11
--- NOTE | 2019-02-18 00:21 | PN ---
DATE: 02/15/2019 SUBJECTIVE: Followup on surgery for lumbar spondylolisthesis, anxiety, asthma, bipolar disorder. Th e patient is breathing comfortably at rest. Denies any chest pain. Postoperative pain stable. PHYSICAL EXAMINATION: VITAL SIGNS: Temperature 98.6, pulse 91, respirations 18, blood pressure 112/69, O2 sat 96% on room air. HEENT: No eye discharge or redness. Conjunctivae are normal. Oropharynx clear. NECK: No mass. CHEST: Fairly clear. CARDIOVASCULAR: S1, S2 normal. ABDOMEN: Soft, nondistended, nontender. EXTREMITIES: No edema. NEUROLOGIC: The patient is awake, alert. LABORATORY DATA: Labs done on 02/15: WBC 4.7, hemoglobin 13.4, platelets 268. Sodium 130, potassiu m 4.7, BUN 18, creatinine 0.4, glucose 100. IMPRESSION: 1. Lumbar 4-5 spondylolisthesis, status post surgery. 2. Asthma. 3. Anxiety and bipolar disorder. PLAN: The patient will continue on Trileptal and Seroquel, will continue postoperative pain control with [place] and IV morphine. The patient was seen by Physical Therapy on 02/15 and bed mobility, ortiz sfer and gait training provided. DME and placement at [facility] pending. Dictated By: OLIVERIO HENLEY/SIGRID Conf#: [id number] DID#: [id number]
== END 2019-02-16 17:45 | disposition home or self-care (01) | DRG 460 ==
LOC: REC 09:42 → EDBD 12:00 → MS1 15:35
PROVIDERS: ADMIT Neurological Surgery; ATTEND Neurological Surgery
PROC: 0MBD0ZZ Excision of Lower Spine Bursa and Ligament, Open Approach (ICD-10-PCS; 2019-02-08)
PROC: 0SG00J1 Fusion of Lumbar Vertebral Joint with Synthetic Substitute, Posterior Approach, Posterior Column, Open Approach (ICD-10-PCS; principal; 2019-02-08 12:00)
DX: M43.16 Spondylolisthesis, lumbar region (principal); M71.38 Other bursal cyst, other site; J44.9 Chronic obstructive pulmonary disease, unspecified; Z72.0 Tobacco use; F41.9 Anxiety disorder, unspecified; F31.9 Bipolar disorder, unspecified; J45.909 Unspecified asthma, uncomplicated
CPT/HCPCS: 72100; 80048; 85025; 87086; 97116; 97162; 97530; A4310; J0690; J1100; J1170; J2175; J2250; J2270; J2405; J2710; J3010; J7121